=== PATIENT | male | born 1955 | race Caucasian/White ===

== ENCOUNTER → 2016-09-01 | Outpatient (CLI) | payer OTHER ==
[~2016-09-01] MED LIST: CHOL100027 PO
[2016-09-01 17:44] LABS: COMPLETE YES; EOS % 0.2 %; HEMATOCRIT 40.9 % (42-52); IG% 0.2 %; LYMPH % 9.8 %; LYMPH ABS # 0.57 K/uL (1.2-3.4); MEAN CELL VOLUME 91.9 fL (80-100); MEAN CORPUSCULAR HGB CONC 33.7 g/dl (32-36); MEAN PLATELET VOLUME 11.8 fL (7.4-10.4); MONO % 5.2 %; NEUT % 84.6 %; PLATELET COUNT 126 K/uL (130-400); RED BLOOD COUNT 4.45 M/uL (4.7-6.1); WHITE BLOOD COUNT 5.82 K/uL (4.8-10.8)
[2016-09-01 17:54] LABS: ALT/SGPT 18 U/L (12-78); AST/SGOT 12 U/L (15-37); BLOOD UREA NITROGEN 13 mg/dl (7-18); BUN/CREATININE RATIO 14.4 (10-20); CALCIUM 8.1 mg/dl (8.5-10.1); CARBON DIOXIDE 24 mmol/L (21-32); CHLORIDE 109 mmol/L (98-107); CREATININE 0.94 mg/dl (0.60-1.40); GLUCOSE 103 mg/dl (70-99); POTASSIUM 3.8 mmol/L (3.5-5.1); SODIUM 141 mmol/L (136-145)
[2016-09-01 17:56] LABS: ALB/GLOB RATIO 1.2 (0.9-2); ALKALINE PHOSPHATASE 114 U/L (45-117)
== END | disposition home or self-care (01) ==
LOC: C.LABBFT 14:22
PROVIDERS: ATTEND Physician Assistant Medical
DX: R55 Syncope and collapse (principal)

== ENCOUNTER → 2017-05-20 | Outpatient (CLI) | payer OTHER ==
[2017-05-20 12:32] LABS: BASO % 0.5 %; BASO ABS # 0.03 K/uL (0-0.2); COMPLETE YES; HEMATOCRIT 43.9 % (42-52); IG% 0.3 %; LYMPH % 24.3 %; LYMPH ABS # 1.53 K/uL (1.2-3.4); MEAN CELL VOLUME 93.6 fL (80-100); MEAN CORPUSCULAR HEMOGLOBIN 31.3 pg (25-34); MEAN CORPUSCULAR HGB CONC 33.5 g/dl (32-36); MEAN PLATELET VOLUME 11.4 fL (7.4-10.4); MONO % 8.6 %; NEUT % 63.3 %; PLATELET COUNT 132 K/uL (130-400); RED BLOOD COUNT 4.69 M/uL (4.7-6.1); WHITE BLOOD COUNT 6.29 K/uL (4.8-10.8)
[2017-05-20 12:43] LABS: BLOOD UREA NITROGEN 18 mg/dl (7-18); BUN/CREATININE RATIO 20.1 (10-20); CARBON DIOXIDE 26 mmol/L (21-32); CHLORIDE 108 mmol/L (98-107); CREATININE 0.91 mg/dl (0.60-1.40); GLUCOSE 94 mg/dl (70-99); POTASSIUM 3.8 mmol/L (3.5-5.1); SODIUM 140 mmol/L (136-145)
[2017-05-20 12:44] LABS: ALKALINE PHOSPHATASE 125 U/L (45-117); ALT/SGPT 20 U/L (12-78); AST/SGOT 16 U/L (15-37); CHOLESTEROL 144 mg/dl (0-200); CHOLESTEROL/HDL RATIO 3.5; HDL CHOLESTEROL 41 mg/dl; LDL CHOLESTEROL CALCULATED 91 mg/dl; MAGNESIUM 2.2 mg/dl (1.8-2.4); TOTAL IRON BINDING CAPACITY 276 mcg/dl (250-450); TRIGLYCERIDES 62 mg/dl (0-150); VERY LOW DENSITY LIPOPROT CALC 12 mg/dl
[2017-05-20 12:50] LABS: ALB/GLOB RATIO 1.1 (0.9-2); FERRITIN 63.8 ng/ml (8.0-388.0); THYROID STIMULATING HORMONE 0.968 uIu/ml (0.300-4.500)
== END | disposition home or self-care (01) ==
LOC: C.LABBFT 08:49
PROVIDERS: ATTEND Internal Medicine
DX: R97.20 Elevated prostate specific antigen [PSA] (principal); D64.9 Anemia, unspecified; R25.2 Cramp and spasm; E78.00 Pure hypercholesterolemia, unspecified

== ENCOUNTER 2017-06-02 15:13 | Emergency (ER) | payer OTHER ==
[~2017-06-02] VITALS: Ht 177.8 cm; Wt 98.6 kg
[2017-06-02 15:26] VITALS: TEMP 36.6; Ht 177.8 cm; Wt 98.6 kg
[2017-06-02] MEDS ORDERED: GELATIN SPONGE 12-7MM EXT STA (15:35)
[2017-06-02] MEDS ORDERED: XYLOCAINE 1%/SOD BICARB 20 ML VIAL INFIL STA (15:35)
--- NOTE | 2017-06-02 16:45 | DIAGNOSTIC IMAGING REPORT ---
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 Mild associated soft tissue swelling. Fine bony detail is obscured by overlying gauze material. No opaque foreign body. There is suggested laceration of the distal digit with possible nailbed injury. IMPRESSION: 1. Acute intra-articular mildly displaced fracture involves the dorsal medial base of the fourth distal phalanx. 2. Soft tissue swelling of the fourth digit with suggested laceration and possible nailbed injury. No opaque foreign body. The above report was generated using voice recognition software. It may contain grammatical, syntax or spelling errors. Electronically signed by: Godwin Solano M.D. 06/02/2017 4:44 PM Dictated Date/Time: 06/02/2017 4:40 PM
--- NOTE | 2017-06-02 17:05 | EMERGENCY ROOM VISIT NOTE ---
ED Visit Note First contact with patient: 15:30 CHIEF COMPLAINT: Fingertip laceration HISTORY OF PRESENT ILLNESS: This 62-year-old male patient presents to the emergency department approximately one hour after cutting the tip of the fourth finger when he got his finger stuck in a turbo candy vendor fan. The bleeding has not completely stopped. Denies weakness or numbness of the finger. The patient has full range of motion of the fingers. The patient rates the pain as minimal and 0/10. The patient denies any other injuries. The patient's tetanus shot is up to date. REVIEW OF SYSTEMS: A 6 system review of systems was completed with positives and pertinent negatives listed in the HPI. ALLERGIES: None MEDICATIONS: None PMH: None SOCIAL HISTORY: The patient lives locally with family. He denies drug, alcohol , tobacco use. PHYSICAL EXAM: Vital Signs: Reviewed Nurse's notes, vital signs stable. GENERAL : This is a 62-year-old white male, in no acute distress, well developed, well nourished. SKIN: There is an avulsion of the skin of the tip of the 4th finger. There are pieces of fingernail which have been lacerated. There are pieces of skin which are partially avulsed. The fingertip is overall macerated, and there is no obvious laceration or enough skin to attempt to suture the wound. There is no foreign material in the wound and it looks clean. There is minimal bleeding. No deep structures such as tendons, bones, or significant blood vessels are seen in the base of the wound. Extension and flexion of the finger is full and strong. Full range of motion of the wrist and other fingers. Capillary refill less than 2 seconds. Normal sensation to light and sharp touch. EMERGENCY DEPARTMENT COURSE: I examined the patient. Verbal consent was obtained to perform the procedure. Using sterile technique the wound was cleansed with Betadine. 6 ml of 1% buffered lidocaine was used to perform a digital block to anesthetize the patient. The area was sterilely draped. Once the patient was anesthetized, the wound was copiously irrigated under pressure with sterile saline. The wound was explored and there were no deep structures injured. The laceration was covered with gelfoam and a Telfa dressing with gauze. The patient tolerated the procedure well. Hemostasis was achieved. X- ray was performed to rule out fracture and was reviewed by myself and radiologist and shows a fracture of the proximal aspect of the distal phalanx of the 4th digit. The patient was placed in a metal cage splint. The patient is to follow-up with orthopedics. Discharge instructions were reviewed. The patient was discharged home in good condition. I attest that I have personally reviewed the patient's current medication list. Patient was found to have normal blood pressure on screening and does not require follow-up. DIFFERENTIAL DIAGNOSIS: Avulsion, laceration, nailbed injury, fracture, open fracture, and others DIAGNOSIS: Fingertip avulsion, fracture of distal phalanx of right 4th finger Current/Historical Medications Scheduled Cephalexin Monohydrate (Keflex), 500 MG PO QID Allergies Coded Allergies: No Known Allergies (Unverified , 06/02/17) Vital Signs Date Time Temp Pulse Resp B/P (MAP) Pulse Ox O2 Delivery O2 Flow Rate FiO2 06/02/17 15:26 36.6 70 18 137/82 96 Room Air Departure Information Impression Primary Impression: Avulsion of skin of finger Additional Impression: Fracture of distal phalanx of finger of right hand Dispostion Home / Self-Care Condition GOOD Prescriptions Cephalexin Monohydrate (Keflex) 500 Mg Cap 500 MG PO QID for 10 Days, #40 CAP Prov: Christal Klein, ANDRES 06/02/17 Referrals Vincent Blunt M.D. (PCP) [facility] Patient Instructions ED Fx Finger Open, ED Gelfoam Dressing, ED Laceration Amputation Finger Tip Open Tx, My [facility] Additional Instructions You have been treated in the Emergency Department today for your right 4th fingertip Avulsion and 4th distal phalanx fracture. Your finger has been dressed and splinted. If you change the dressing, remove the splint, then reapply it gently without moving the finger around. Leave the GELFOAM and dressing in place for the next 48 hours. Keep the dressing clean and dry until time for removal. To remove the GELFOAM dressing, remove the overlying tape and change the dressing. The gelfoam may fall off on its own, or may remain in place. Cephalexin(Keflex) 500mg: Take one pill four times daily for 10 days for your skin infection. All antibiotics can cause diarrhea. If this occurs and you feel worse or it does not resolve in 1-2 days follow up with your doctor or return to the Emergency Department as this could be signs of serious underlying problems. Any medication can cause an allergic reaction, stop the pills immediately and return to the ER for rash, hives, breathing difficulties, or swelling. Proper wound care is essential for adequate wound healing and infection prevention. You can shower and clean the wound with soap and water. Do not scour over the wound, pat dry with a towel. You can use an antibiotic ointment with a dressing/bandage over the wound for the next 3-4 days. After this time you may leave the wound dry and open to the air. Look for signs of infection of the wound including: increased pain, swelling, foul discharge, streaking, or increased temperature. If any of these are noticed you should return to the Emergency Department for further assessment and treatment. As with any laceration you may have received nerve damage to the surrounding tissues. This damage could be permanent. For pain control, you can use the following [id number] medicines (if >12 yo): Ibuprofen(Motrin, Advil) may be used for fever or pain. Use 600mg every six hours as needed. Take with food. Avoid using more than 2400mg in a 24 hour period. Do not use 2400mg per day for more than three consecutive days without physician direction. Prolonged inappropriate use can lead to stomach upset or ulcers. (AND/OR) Acetaminophen(Tylenol) may be used for fever or pain. Use 1000mg every six hours as needed. Avoid using more than 3000mg in a 24 hour period. Return to the emergency department if your symptoms worsen despite treatment course outlined above. Follow-up with orthopedics within the next week for re-check and re-evaluation. Problem Qualifiers Primary Impression: Avulsion of skin of finger Encounter type: initial encounter Qualified Codes: S61.209A - Unspecified open wound of unspecified finger without damage to nail, initial encounter
[2017-06-02 17:10] VITALS: BP 155/83; PULSE 79; O2SAT 95
[2017-06-02] MEDS ORDERED: CEPH500C PO (17:12)
== END 2017-06-02 17:19 | disposition home or self-care (01) ==
LOC: C.EDB 15:16 → C.EDD 17:19
DX: S61.214A Laceration without foreign body of right ring finger without damage to nail, initial encounter (principal); S62.634A Displaced fracture of distal phalanx of right ring finger, initial encounter for closed fracture; W23.0XXA Caught, crushed, jammed, or pinched between moving objects, initial encounter; Y92.9 Unspecified place or not applicable